=== PATIENT | female | born 1960 | race Caucasian/White ===

== ENCOUNTER 2023-08-14 09:09 | Day surgery (SDC) | payer OTHER ==
[~2023-08-14] VITALS: Ht 152.4 cm; Wt 61.7 kg
[2023-08-14] MEDS ORDERED: LIDOCAINE 2% 100 MG/5 ML UJET TP ONE (12:38)
[2023-08-14] MEDS ORDERED: fentaNYL citrate 0.05 MG/ML VIAL ONE (12:38)
[2023-08-14] MEDS: fentaNYL citrate 0.05 MG/ML VIAL IVP ONE (13:18)
[2023-08-14] MEDS: LIDOCAINE 2% 100 MG/5 ML UJET TP ONE (13:27)
== END 2023-08-14 14:55 | disposition home or self-care (01) ==
LOC: MDS 09:09 → MMU 11:01 → MDS 14:55
PROVIDERS: ATTEND Internal Medicine Gastroenterology
DX: Z12.11 Encounter for screening for malignant neoplasm of colon (principal); Z88.0 Allergy status to penicillin; Z98.891 History of uterine scar from previous surgery; Z79.899 Other long term (current) drug therapy; Z98.890 Other specified postprocedural states
CPT/HCPCS: 45378; J3010